=== PATIENT | female | born 1995 | race Caucasian/White ===

== ENCOUNTER 2020-01-13 12:07 | Emergency (ER) | payer OTHER, SELFPAY ==
--- NOTE | ~2020-01-13 | XR_ITS ---
EXAMINATION: XR finger 3rd LT min 2V DATE: 01/13/2020 12:56 INDICATION: Dog bite to left third digit TECHNIQUE: Dorsal palmar, lateral and 2 oblique views of the left third digit were obtained COMPARISON: None FINDINGS: Abnormal skin contour suggesting lacerations at the radial side of distal aspect of the left third di git with likely flap of soft tissue near the tip of the finger. Bone alignment is normal. No fracture . Joint spaces are normal. No radiopaque foreign bodies. IMPRESSION: 1. No osseous abnormality or radiopaque foreign bodies. Reviewed, dictated and finalized at location A.
[2020-01-13 12:11] VITALS: BP 126/83; PULSE 80; RESP 18; TEMP 37.1; O2SAT 100
--- NOTE | 2020-01-13 12:42 | ED.ANIMALBIT ---
HPI - Animal Bite General Chief Complaint: Animal Bite Stated Complaint: dog bite Time Seen by Provider: 01/13/20 12:25 History of Present Illness HPI narrative: Bitten on the left hand by a filipino bass today. She has multiple lacerations to the left middle finger as well as minor cuts to the rest of the hand. Moderate pain. No numbness. Able to move all finger normally. She is not up to date on her tetanus shots. She believes that the dog has had all of it vaccinations. Related Data Home Medications Medication Instructions Recorded Confirmed No Home Medications 01/13/20 01/13/20 Allergies Allergy/AdvReac Type Severity Reaction Status Date / Time No Known Allergies Allergy Verified 01/13/20 12:38 Review of Systems Review of Systems: All systems reviewed & are unremarkable except as noted in HPI and below PMFSH Social History Social History Gender identity (if verbalized by the patient): Female Exam Const: General: healthy appearing; No acute distress Nutritional Appearance: well nourished Orientation/consciousness: patient oriented x3 HENMT: Head: normal to inspection Cardio: Other: 2 + left radial pulse. Brisk capillary refil in all fingers Skin: Other: Multiple small lacerations to left middle finger Neuro: Other: Motor and sensor intact throughout Extrem: Left upper extremity: full ROM Course Vital Signs Vital signs: Vital Signs Temperature 37.1 C 01/13/20 12:11 Pulse Rate 80 01/13/20 12:11 Respiratory Rate 18 01/13/20 12:11 Blood Pressure 126/83 01/13/20 12:11 Pulse Oximetry 100 01/13/20 12:11 Temperature 37.1 C 01/13/20 12:11 Pulse Rate 80 01/13/20 12:11 Respiratory Rate 18 01/13/20 12:11 Blood Pressure 126/83 01/13/20 12:11 Pulse Oximetry 100 01/13/20 12:11 MDM - Animal Bite MDM Narrative Medical decision making narrative: Lacerations no appropriate for closure given that they are bite wounds. Wounds irrigated extensively. Grossly reapproximated and dressed. Tetanus updated. Differential Diagnosis Differential diagnosis: Likely dog bite Imaging Data Radiologist's impression: ITS Impressions Finger X-Ray 01/13/20 12:57 IMPRESSION: 1. No osseous abnormality or radiopaque foreign bodies. Discharge Plan Discharge Clinical Impression: Dog bite Patient Disposition: Home, Self-Care Condition: Stable Instructions: Antibiotic Form, Animal Bite (ED) Prescriptions: New amoxicillin-pot clavulanate [Augmentin] 875-125 mg tablet 1 tablet PO Q12H Qty: 10 RF: 0 No Action No Home Medications RF: 0 Follow-up/Referrals: Srini,Marietta Klein MD [Primary Care Provider] - Stand Alone Forms: Work/School Release IP Discharge Date/Time: 01/13/20 14:00
[2020-01-13] MEDS: IBUPROFEN 600 MG TABLET PO (13:06)
[2020-01-13] MEDS: AMOXICILLIN/CLAVULANATE K 875-125 MG TAB 1 TABLET PO (13:06)
[2020-01-13] MEDS: TETANUS,DIPHTHERIA,AC PERTUSSIS ADULT (0.5 ML) BOOSTRIX IM (13:50)
== END 2020-01-13 14:00 | disposition home or self-care (01) ==
PROVIDERS: Emergency Provider Emergency Medicine; PCP Family Medicine
DX: S61.253A Open bite of left middle finger without damage to nail, initial encounter (principal); W54.0XXA Bitten by dog, initial encounter; Z23 Encounter for immunization
CPT/HCPCS: 73140; 90471; 90715; 99283; A9270